=== PATIENT | female | born 1975 | race Caucasian/White ===

== ENCOUNTER 2018-11-15 11:16 | Observation (INO) ==
--- NOTE | 2018-11-15 11:35 | Emergency Department Note ---
Disposition Clinical Impression: Bilateral ureteral obstruction Disposition: Admitted As Inpatient Referrals: NONE,PCP [Primary Care Provider] - Forms: ED Satisfaction Letter, Work/School Release Time of Disposition: 13:25 Abdominal Pain HPI - General Chief Complaint: ED Abdominal Pain Stated Complaint: kidney stones Time Seen by Provider: 11/15/18 11:30 Source: patient Nursing Notes Reviewed: Yes Vital Signs Reviewed: Yes - History of Present Illness HPI Narrative: 43-year-old female presents emergency department with concern for left flank pain over the last 4 days. Patient states that on Monday, started having some left flank discomfort. Reports having history of ureteral stones with having have them removed in the past. Patient states that things have just not gotten any better and the pain may be getting a little bit worse. She endorses nausea, but no vomiting. She denies any fevers, chills. She denies any dysuria, urinary , urgency. She does state she has hematuria. Pain Scale: 7 - Related Data Home Medications Medication Instructions Recorded Confirmed LORazepam [Ativan] 1 mg PO BID PRN 11/15/18 11/15/18 Venlafaxine XR (24 HR) [Effexor XR] 75 mg PO BID 11/15/18 11/15/18 l-Norgest/E.estradiol-E.estrad 1 each PO [id number] 11/15/18 11/15/18 [Seasonique 0.15-0.03-0.01 Tab] Allergies Allergy/AdvReac Type Severity Reaction Status Date / Time No Known Allergies Allergy Verified 11/15/18 11:58 All systems ED: reviewed and negative except as stated. Review of Systems: As Per HPI Constitutional: Denies: fever Cardiovascular: Denies: chest pain Respiratory: Denies: cough, dyspnea Gastrointestinal: Reports: abdominal pain, nausea. Denies: vomiting Genitourinary: Reports: hematuria. Denies: urgency, dysuria, frequency Musculoskeletal: Reports: back pain Integumentary: Denies: rash Abdominal Pain PMH - Past Medical History Medical history: Reports: non-contributory, kidney stones Female Surgical History: Reports: appendectomy, , cholecystectomy, orthopedic, other Psychiatric history: Reports: no psych history - Social History Smoking status: Current every day smoker Alcohol use: Reports: none Drug use: Reports: none Physical Exam - General Limitations: no limitations General appearance: alert, in no apparent distress Course Vital Signs Temperature 98.0 F 11/15/18 11:24 Pulse Rate 97 11/15/18 11:24 Respiratory Rate 18 11/15/18 11:24 Blood Pressure 128/77 11/15/18 11:24 O2 Sat by Pulse Oximetry 98 11/15/18 11:24 Temperature 98.0 F 11/15/18 11:24 Pulse Rate 93 11/15/18 11:52 Respiratory Rate 18 11/15/18 11:24 Blood Pressure 93/62 11/15/18 11:52 O2 Sat by Pulse Oximetry 100 11/15/18 11:52 Oxygen Delivery Oxygen Delivery Room Air Abdominal Pain - MDM Narrative Medical decision making narrative: 43-year-old female presents emergency department with left flank pain. A CT scan abdomen and pelvis revealed bilateral obstructive stones with hydroureter. Patient also has an AKA I which is most likely secondary to the bilateral obstructive uropathy. Patient was given 2 L of fluids here. Urinalysis shows mild signs of infection with a leukocytosis. Have provided Rocephin to the patient as well. Patient had her pain well controlled here in the emergency department. Potassium is 3. Will not replenish as patient has an acute kidney injury. I spoke with urology who will plan for surgery later today. Patient understands this. Admitted to the hospitalists. Abdomen/Pelvis CT 11/15/18 11:41 IMPRESSION: 1. Mild to moderate left hydronephrosis and hydroureter secondary to a proximal left ureteral stone measuring up to 7 mm. 2. Mild right hydronephrosis secondary to a 4 mm stone just distal to the right ureteropelvic junction. 3. Multiple nonobstructing nephrolithiasis. 4. Status post cholecystectomy. Abnormal high density is seen in the surgical bed of unclear etiology. D/ / 11/15/2018 13:03:31 Leanne Hernandez MD / rock Interpreting Provider: Leanne Hernandez MD - Lab Data Result diagrams: 11/15/18 11:47 11/15/18 11:47 Lab Results 11/15/18 11/15/18 11/15/18 Range/Units 11:37 11:37 11:47 WBC 12.3 H (4.3-11.1) K/mcL RBC 4.00 (3.82-4.97) M/mcL Hgb 12.1 (11.5-15.4) g/dL Hct 37.5 (35.3-44.9) % MCV 93.8 (83.0-100.0) fL MCH 30.3 (28.0-33.3) pg MCHC 32.3 (31.6-35.5) g/dL RDW 13.4 (11.5-14.5) % Plt Count 282 (140-400) K/mcL MPV 9.7 (9.4-12.4) fL Immature Gran % 0.4 (0-4) % Seg Neutrophils % 79.5 % Lymphocytes % 14.1 % Monocytes % 3.7 % Eosinophils % 2.0 % Basophils % 0.3 % Neutrophils # 9.8 H (1.6-8.9) K/mcL Lymphocytes # 1.7 (0.6-4.6) K/mcL Monocytes # 0.5 (0.0-1.3) K/mcL Eosinophils # 0.2 (0.0-0.6) K/mcL Basophils # 0.0 (0.0-0.2) K/mcL Sodium (136-145) mEq/L Potassium (3.5-5.1) mEq/L Chloride (98-107) mEq/L Carbon Dioxide (23-29) mEq/L BUN (6-20) mg/dL Creatinine (0.60-1.20) mg/dL Est GFR ( Amer) (> 60) Est GFR (Non-Af Amer) (> 60) BUN/Creatinine Ratio (6-26) Glucose (70-105) mg/dL Calculated Osmolality (280-300) Calcium (8.6-10.3) mg/dL Total Bilirubin (0.3-1.0) mg/dL AST (13-39) Units/L ALT (7-52) Units/L Alkaline Phosphatase (34-104) Units/L Serum Total Protein (6.4-8.9) g/dL Albumin (3.5-5.7) g/dL Globulin (2.4-3.5) g/dL Albumin/Globulin Ratio (1.1-2.2) Lipase (11-82) Units/L Urine Color Yellow (Yellow) Urine Clarity Clear (Clear) Urine pH 6.5 (5.0-8.0) pH Units Ur Specific [place] 1.015 (1.010-1.025) Urine Protein 30 H (Neg-Trace) mg/dL Urine Glucose (UA) Normal (Normal) mg/dL Urine Ketones Negative (Negative) mg/dL Urine Blood Moderate H (Negative) Urine Nitrite Negative (Negative) Urine Bilirubin Negative (Negative) Urine Urobilinogen Normal (Normal) mg/dL Ur Leukocyte Esterase Trace H (Negative) Urine Microscopic RBC 15-30 H (0-3) per hpf Urine Microscopic WBC 5-15 H (0-3) per hpf Ur Squamous Epith Cells Many H (None-Few) per lpf Urine Bacteria None Seen (None-Few) per hpf Hyaline Casts None Seen (None-Few) per lpf Ur Culture Indicated? YES A (NO) Urine Test Negative (Negative) 11/15/18 Range/Units 11:47 WBC (4.3-11.1) K/mcL RBC (3.82-4.97) M/mcL Hgb (11.5-15.4) g/dL Hct (35.3-44.9) % MCV (83.0-100.0) fL MCH (28.0-33.3) pg MCHC (31.6-35.5) g/dL RDW (11.5-14.5) % Plt Count (140-400) K/mcL MPV (9.4-12.4) fL Immature Gran % (0-4) % Seg Neutrophils % % Lymphocytes % % Monocytes % % Eosinophils % % Basophils % % Neutrophils # (1.6-8.9) K/mcL Lymphocytes # (0.6-4.6) K/mcL Monocytes # (0.0-1.3) K/mcL Eosinophils # (0.0-0.6) K/mcL Basophils # (0.0-0.2) K/mcL Sodium 137 (136-145) mEq/L Potassium 3.0 L (3.5-5.1) mEq/L Chloride 103 (98-107) mEq/L Carbon Dioxide 26 (23-29) mEq/L BUN 18 (6-20) mg/dL Creatinine 2.10 H (0.60-1.20) mg/dL Est GFR ( Amer) 31 L (> 60) Est GFR (Non-Af Amer) 26 L (> 60) BUN/Creatinine Ratio 9 (6-26) Glucose 104 (70-105) mg/dL Calculated Osmolality 286 (280-300) Calcium 8.5 L (8.6-10.3) mg/dL Total Bilirubin 0.3 (0.3-1.0) mg/dL AST 15 (13-39) Units/L ALT 13 (7-52) Units/L Alkaline Phosphatase 76 (34-104) Units/L Serum Total Protein 6.4 (6.4-8.9) g/dL Albumin 3.4 L (3.5-5.7) g/dL Globulin 3.0 (2.4-3.5) g/dL Albumin/Globulin Ratio 1.1 (1.1-2.2) Lipase 77 (11-82) Units/L Urine Color (Yellow) Urine Clarity (Clear) Urine pH (5.0-8.0) pH Units Ur Specific [place] (1.010-1.025) Urine Protein (Neg-Trace) mg/dL Urine Glucose (UA) (Normal) mg/dL Urine Ketones (Negative) mg/dL Urine Blood (Negative) Urine Nitrite (Negative) Urine Bilirubin (Negative) Urine Urobilinogen (Normal) mg/dL Ur Leukocyte Esterase (Negative) Urine Microscopic RBC (0-3) per hpf Urine Microscopic WBC (0-3) per hpf Ur Squamous Epith Cells (None-Few) per lpf Urine Bacteria (None-Few) per hpf Hyaline Casts (None-Few) per lpf Ur Culture Indicated? (NO) Urine Test (Negative)
--- NOTE | 2018-11-15 11:36 | Emergency Department Note ---
Disposition Clinical Impression: Bilateral ureteral obstruction Disposition: Admitted As Inpatient Time of Disposition: 16:57 General Adult HPI - General Chief complaint: ED Abdominal Pain Stated complaint: kidney stones Time Seen by Provider: 11/15/18 11:30 Source: patient Limitations: no limitations - History of Present Illness Pain Scale: 7 - Related Data Home Medications Medication Instructions Recorded Confirmed LORazepam [Ativan] 1 mg PO BID PRN 11/15/18 11/15/18 Tamsulosin HCl [Flomax] 0.4 mg PO DAILY 11/15/18 11/15/18 Venlafaxine XR (24 HR) [Effexor XR] 75 mg PO BID 11/15/18 11/15/18 l-Norgest/E.estradiol-E.estrad 1 each PO DAILY 11/15/18 11/15/18 [Seasonique 0.15-0.03-0.01 Tab] Allergies Allergy/AdvReac Type Severity Reaction Status Date / Time No Known Allergies Allergy Verified 11/15/18 11:58 Past Medical History - Past Medical History Medical history: Reports: non-contributory, kidney stones Psychiatric history: Reports: no psych history - Social History Smoking Status: Current every day smoker Alcohol use: Reports: none Drug use: Reports: none Physical Exam - General Limitations: no limitations General appearance: alert, in no apparent distress Course Vital Signs Temperature 98.0 F 11/15/18 11:24 Pulse Rate 97 11/15/18 11:24 Respiratory Rate 18 11/15/18 11:24 Blood Pressure 128/77 11/15/18 11:24 O2 Sat by Pulse Oximetry 98 11/15/18 11:24 Temperature 98.0 F 11/15/18 11:24 Pulse Rate 78 11/15/18 13:25 Respiratory Rate 16 11/15/18 13:25 Blood Pressure 110/72 11/15/18 13:25 O2 Sat by Pulse Oximetry 96 11/15/18 13:25 Oxygen Delivery Oxygen Delivery Room Air Medical Decision Making - Lab Data Result diagrams: 11/15/18 11:47 11/15/18 11:47 Lab Results 11/15/18 11/15/18 11/15/18 Range/Units 11:37 11:37 11:47 WBC 12.3 H (4.3-11.1) K/mcL RBC 4.00 (3.82-4.97) M/mcL Hgb 12.1 (11.5-15.4) g/dL Hct 37.5 (35.3-44.9) % MCV 93.8 (83.0-100.0) fL MCH 30.3 (28.0-33.3) pg MCHC 32.3 (31.6-35.5) g/dL RDW 13.4 (11.5-14.5) % Plt Count 282 (140-400) K/mcL MPV 9.7 (9.4-12.4) fL Immature Gran % 0.4 (0-4) % Seg Neutrophils % 79.5 % Lymphocytes % 14.1 % Monocytes % 3.7 % Eosinophils % 2.0 % Basophils % 0.3 % Neutrophils # 9.8 H (1.6-8.9) K/mcL Lymphocytes # 1.7 (0.6-4.6) K/mcL Monocytes # 0.5 (0.0-1.3) K/mcL Eosinophils # 0.2 (0.0-0.6) K/mcL Basophils # 0.0 (0.0-0.2) K/mcL Sodium (136-145) mEq/L Potassium (3.5-5.1) mEq/L Chloride (98-107) mEq/L Carbon Dioxide (23-29) mEq/L BUN (6-20) mg/dL Creatinine (0.60-1.20) mg/dL Est GFR ( Amer) (> 60) Est GFR (Non-Af Amer) (> 60) BUN/Creatinine Ratio (6-26) Glucose (70-105) mg/dL Calculated Osmolality (280-300) Calcium (8.6-10.3) mg/dL Total Bilirubin (0.3-1.0) mg/dL AST (13-39) Units/L ALT (7-52) Units/L Alkaline Phosphatase (34-104) Units/L Serum Total Protein (6.4-8.9) g/dL Albumin (3.5-5.7) g/dL Globulin (2.4-3.5) g/dL Albumin/Globulin Ratio (1.1-2.2) Lipase (11-82) Units/L Urine Color Yellow (Yellow) Urine Clarity Clear (Clear) Urine pH 6.5 (5.0-8.0) pH Units Ur Specific [place] 1.015 (1.010-1.025) Urine Protein 30 H (Neg-Trace) mg/dL Urine Glucose (UA) Normal (Normal) mg/dL Urine Ketones Negative (Negative) mg/dL Urine Blood Moderate H (Negative) Urine Nitrite Negative (Negative) Urine Bilirubin Negative (Negative) Urine Urobilinogen Normal (Normal) mg/dL Ur Leukocyte Esterase Trace H (Negative) Urine Microscopic RBC 15-30 H (0-3) per hpf Urine Microscopic WBC 5-15 H (0-3) per hpf Ur Squamous Epith Cells Many H (None-Few) per lpf Urine Bacteria None Seen (None-Few) per hpf Hyaline Casts None Seen (None-Few) per lpf Ur Culture Indicated? YES A (NO) Urine Test Negative (Negative) 11/15/18 Range/Units 11:47 WBC (4.3-11.1) K/mcL RBC (3.82-4.97) M/mcL Hgb (11.5-15.4) g/dL Hct (35.3-44.9) % MCV (83.0-100.0) fL MCH (28.0-33.3) pg MCHC (31.6-35.5) g/dL RDW (11.5-14.5) % Plt Count (140-400) K/mcL MPV (9.4-12.4) fL Immature Gran % (0-4) % Seg Neutrophils % % Lymphocytes % % Monocytes % % Eosinophils % % Basophils % % Neutrophils # (1.6-8.9) K/mcL Lymphocytes # (0.6-4.6) K/mcL Monocytes # (0.0-1.3) K/mcL Eosinophils # (0.0-0.6) K/mcL Basophils # (0.0-0.2) K/mcL Sodium 137 (136-145) mEq/L Potassium 3.0 L (3.5-5.1) mEq/L Chloride 103 (98-107) mEq/L Carbon Dioxide 26 (23-29) mEq/L BUN 18 (6-20) mg/dL Creatinine 2.10 H (0.60-1.20) mg/dL Est GFR ( Amer) 31 L (> 60) Est GFR (Non-Af Amer) 26 L (> 60) BUN/Creatinine Ratio 9 (6-26) Glucose 104 (70-105) mg/dL Calculated Osmolality 286 (280-300) Calcium 8.5 L (8.6-10.3) mg/dL Total Bilirubin 0.3 (0.3-1.0) mg/dL AST 15 (13-39) Units/L ALT 13 (7-52) Units/L Alkaline Phosphatase 76 (34-104) Units/L Serum Total Protein 6.4 (6.4-8.9) g/dL Albumin 3.4 L (3.5-5.7) g/dL Globulin 3.0 (2.4-3.5) g/dL Albumin/Globulin Ratio 1.1 (1.1-2.2) Lipase 77 (11-82) Units/L Urine Color (Yellow) Urine Clarity (Clear) Urine pH (5.0-8.0) pH Units Ur Specific [place] (1.010-1.025) Urine Protein (Neg-Trace) mg/dL Urine Glucose (UA) (Normal) mg/dL Urine Ketones (Negative) mg/dL Urine Blood (Negative) Urine Nitrite (Negative) Urine Bilirubin (Negative) Urine Urobilinogen (Normal) mg/dL Ur Leukocyte Esterase (Negative) Urine Microscopic RBC (0-3) per hpf Urine Microscopic WBC (0-3) per hpf Ur Squamous Epith Cells (None-Few) per lpf Urine Bacteria (None-Few) per hpf Hyaline Casts (None-Few) per lpf Ur Culture Indicated? (NO) Urine Test (Negative) Attestation Statement - Attestation Attestation: I reviewed the residents documentation and agree with the residents assessment and plan of care. I have personally had face to face time with the patient. (Brief History, Brief Exam, and MDM) I personally supervised and was present for the ascencio/critical portions of the following procedures completed by the resident: (add procedures performed here). [id number] time provided Patient with renal colic. Recently seen at an outside facility for similar symptoms. We will attempt to obtain the transcribed report of her recent renal US. Patient appears in no acute distress on exam
[2018-11-15] MEDS ORDERED: 0.9 % Sodium Chloride 1,000 ML IVC ONE ×2 (11:41→12:28)
[2018-11-15] MEDS ORDERED: Ondansetron 4 MG/2 ML VIAL IVP ONE (11:41)
[2018-11-15 11:54] LABS: Bilirubin,Urine Negative (Negative); Blood,Urine Moderate (Negative); Clarity,Urine Clear (Clear); Color,Urine Yellow (Yellow); Glucose,Urine (UA) Normal (Normal); Ketones,Urine Negative (Negative); Leukocyte Esterase,Urine Trace (Negative); Nitrite,Urine Negative (Negative); PH,Urine 6.5 pH Units (5.0-8.0); Protein,Urine 30 mg/dL (Neg-Trace); Specific Gravity,Urine 1.015 (1.010-1.025); Urobilinogen,Urine Normal (Normal)
[2018-11-15] MEDS ORDERED: Morphine Sulfate 2 MG/ML SYRINGE IVP ONE (11:54)
[2018-11-15 11:56] LABS: Bacteria,Urine None Seen per hpf (None-Few); Hyaline Casts,Urine None Seen per lpf (None-Few); RBC,Urine 15-30 per hpf (0-3); Squamous Epithelial Cell,Urine Many per lpf (None-Few)
[2018-11-15 12:00] LABS: Basophils % 0.3 %; Eosinophils # 0.2 K/mcL (0.0-0.6); Hematocrit 37.5 % (35.3-44.9); Hemoglobin 12.1 g/dL (11.5-15.4); Immature Granulocytes % 0.4 % (0-4); Lymphocytes # 1.7 K/mcL (0.6-4.6); Lymphocytes % 14.1 %; Mean Corpuscular HGB Conc 32.3 g/dL (31.6-35.5); Mean Corpuscular Hemoglobin 30.3 pg (28.0-33.3); Mean Corpuscular Volume 93.8 fL (83.0-100.0); Mean Platelet Volume 9.7 fL (9.4-12.4); Monocytes # 0.5 K/mcL (0.0-1.3); Monocytes % 3.7 %; Neutrophils # 9.8 K/mcL (1.6-8.9); Platelet Count 282 K/mcL (140-400); Red Cell Distribution Width 13.4 % (11.5-14.5); Segmented Neutrophils % 79.5 %; White Blood Count 12.3 K/mcL (4.3-11.1)
[2018-11-15 12:20] LABS: Albumin 3.4 g/dL (3.5-5.7); Albumin/Globulin Ratio 1.1 (1.1-2.2); Bilirubin,Total 0.3 mg/dL (0.3-1.0); Calcium 8.5 mg/dL (8.6-10.3); Total Protein 6.4 g/dL (6.4-8.9)
[2018-11-15] MEDS ORDERED: cefTRIAXone 1,000 MG in Water for inj. (sterile) 10 ML IVP ONE (13:14)
[2018-11-15] MEDS ORDERED: Acetaminophen 325 MG TABLET PO PRN (13:40)
[2018-11-15] MEDS ORDERED: Naloxone 0.4 MG/ML INJ IVP PRN (13:40)
[2018-11-15] MEDS ORDERED: *HR* HYDROcodone/Acet 5/325 mg TABLET PO PRN (13:40)
[2018-11-15] MEDS ORDERED: Ondansetron 4 MG/2 ML VIAL IVP PRN (13:40)
[2018-11-15] MEDS ORDERED: *HR* FentaNYL (PF) 100 MCG/2 ML VIAL IVP PRN (13:42)
--- NOTE | 2018-11-15 14:18 | Urology - Consult Note ---
Date of Encounter: 11/15/18 Time of Encounter: 13:30 - Assessment and Plan (1) HENRRY (acute kidney injury) Current Visit: Yes Status: Acute Assessment and plan: Patient is a 43-year-old female who presents with acute kidney injury. Patient presents with bilateral obstructing ureteral stones. Vital signs are stable and afebrile. Renal function is compromised with a serum creatinine of 2.10 and GFR of 26. I do not have baseline renal function labs to compare. Patient has been consented for bilateral ureteroscopic stone extraction and bilateral stent placement. We will follow postoperative renal function labs. (2) Nephrolithiasis Current Visit: Yes Status: Acute Assessment and plan: Patient is a 43-year-old female who presents the history of nephrolithiasis. Patient has a long-standing history of nephrolithiasis and a significant family history of nephrolithiasis. Patient undergo bilateral ureteroscopy later today. (3) Bilateral ureteral calculi Current Visit: Yes Status: Acute Assessment and plan: Patient is a 43-year-old female who presents with bilateral obstructing renal calculi, hydronephrosis and nephrolithiasis. Vital signs are stable and afebrile. Urine has been sent for culture, and white blood cell count is mildly elevated at 12.3. Patient appears stable and comfortable. Reviewed CT findings. We discussed surgical risks and benefits, and patient and her family members verbalized understanding. Patient signed consent, and she is prepared undergo a bilateral ureteroscopic stone extraction with holmium laser lithotripsy, basket retrieval and bilateral ureteral stent placement later this evening with Dr. Dick. Patient will remain nothing by mouth. Urology CN:HPI Consult date: 11/15/18 Reason for consult Urology: Hydronephrosis (bilateral ureteral calculi) Requesting physician: Gene Johnson History of present illness: Patient is a 43-year-old female who presents with bilateral ureteral calculi, nephrolithiasis and bilateral hydronephrosis. Patient reports intermittent left flank pain over the last 2-3 weeks, but she reports the pain acutely worsened 4 days ago. Patient admits to nausea, left flank pain, and left upper abdominal pain. Patient denies any fever, chills, dysuria, gross hematuria, urgency, frequency or incontinence. Patient presented to the emergency department where she underwent a CT of the abdomen and pelvis revealing mild to moderate left hydronephrosis and hydroureter secondary to a proximal left ureteral stone, measuring up to 7 mm and mild right hydronephrosis secondary to a 4 mm stone just distal to the right UPJ. CT findings were also suggestive of bilateral, nonobstructive nephrolithiasis. Patient reports a long-standing history of nephrolithiasis, and she has previously undergone percutaneous nephrolithotomy, ureteroscopy and ESWL. Patient has a significant family history of renal stones through her brother and father. Past Med Surg Social Fam HX - Past Medical History Medical history: non-contributory, kidney stones Psychiatric history: no psych history - Past Surgical History Additional surgical history: Percutaneous nephrolithotomy, ureteroscopy, ESWL - Social History Smoking Status: Current every day smoker Alcohol use: none Drug use: none - Family History Father Brother Hx Family Genitourinary Disorders: Yes (Renal stones) Medications and Allergies LORazepam [Ativan] 1 mg PO BID PRN 11/15/18 [History] Tamsulosin HCl [Flomax] 0.4 mg PO DAILY 11/15/18 [History] Venlafaxine XR (24 HR) [Effexor XR] 75 mg PO BID 11/15/18 [History] l-Norgest/E.estradiol-E.estrad [Seasonique 0.15-0.03-0.01 Tab] 1 each PO [id number] 11/15/18 [History] Allergy/AdvReac Type Severity Reaction Status Date / Time No Known Allergies Allergy Verified 11/15/18 11:58 Review of Systems - Constitutional no chills, no fatigue, no fever(s) - EENT Nose, mouth and throat: no dizziness, no headache(s) - Cardiovascular no chest pain, no diaphoresis, no dyspnea - Respiratory no cough, no dyspnea - Gastrointestinal abdominal pain, nausea, no vomiting - Genitourinary Genitourinary: flank pain, no change in urinary stream, no difficulty voiding, no dysuria, no hematuria, no urinary frequency, no urinary hesitancy, no urinary incontinence, no urinary urgency - Musculoskeletal back pain, no muscle weakness - Integumentary no erythema, no rash - Neurological no confusion, no syncope - Psychiatric no anxiety, no confusion - Hematologic/Lymphatic no easy bleeding, no easy bruising - Allergic/Immunologic no throat swelling, no wheezing Exam Initial Vital Signs Temp Pulse Resp BP Pulse Ox 98.0 F 97 18 128/77 98 11/15/18 11:24 11/15/18 11:24 11/15/18 11:24 11/15/18 11:24 11/15/18 11:24 - General physical appearance Present: well developed, no distress, no pain - Eyes Present: PERRL, normal ocular movement - ENT Present: normal nares, no hearing loss, no congestion - Neck Present: no masses, trachea midline, no lymphadenopathy - Respiratory Present: normal respiratory effort - Cardiovascular Cardiovascular exam IM: RRR - Abdomen Abdomen: Present: soft, non tender. Absent: distended - Genitourinary Present: other (No CVAT) - Integumentary Present: no rash, no abnormal pigmentation - Neurologic Present: normal coordination - Musculoskeletal Present: other (Normal posture) Urology Results - Labs 11/15/18 11:47 11/15/18 11:47 Abnormal lab results WBC 12.3 K/mcL (4.3-11.1) H 11/15/18 11:47 Neutrophils # 9.8 K/mcL (1.6-8.9) H 11/15/18 11:47 Potassium 3.0 mEq/L (3.5-5.1) L 11/15/18 11:47 Creatinine 2.10 mg/dL (0.60-1.20) H 11/15/18 11:47 Est GFR ( Amer) 31 (> 60) L 11/15/18 11:47 Est GFR (Non-Af Amer) 26 (> 60) L 11/15/18 11:47 Calcium 8.5 mg/dL (8.6-10.3) L 11/15/18 11:47 Albumin 3.4 g/dL (3.5-5.7) L 11/15/18 11:47 Urine Protein 30 mg/dL (Neg-Trace) H 11/15/18 11:37 Urine Blood Moderate (Negative) H 11/15/18 11:37 Ur Leukocyte Esterase Trace (Negative) H 11/15/18 11:37 Urine Microscopic RBC 15-30 per hpf (0-3) H 11/15/18 11:37 Urine Microscopic WBC 5-15 per hpf (0-3) H 11/15/18 11:37 Ur Squamous Epith Cells Many per lpf (None-Few) H 11/15/18 11:37 Ur Culture Indicated? YES (NO) A 11/15/18 11:37 Diabetes panel 11/15/18 Range/Units 11:47 Sodium 137 (136-145) mEq/L Potassium 3.0 L (3.5-5.1) mEq/L Chloride 103 (98-107) mEq/L Carbon Dioxide 26 (23-29) mEq/L BUN 18 (6-20) mg/dL Creatinine 2.10 H (0.60-1.20) mg/dL Glucose 104 (70-105) mg/dL Calcium 8.5 L (8.6-10.3) mg/dL AST 15 (13-39) Units/L ALT 13 (7-52) Units/L Alkaline Phosphatase 76 (34-104) Units/L Albumin 3.4 L (3.5-5.7) g/dL Calcium panel 11/15/18 Range/Units 11:47 Calcium 8.5 L (8.6-10.3) mg/dL Albumin 3.4 L (3.5-5.7) g/dL Pituitary panel 11/15/18 Range/Units 11:47 Sodium 137 (136-145) mEq/L Potassium 3.0 L (3.5-5.1) mEq/L Chloride 103 (98-107) mEq/L Carbon Dioxide 26 (23-29) mEq/L BUN 18 (6-20) mg/dL Creatinine 2.10 H (0.60-1.20) mg/dL Glucose 104 (70-105) mg/dL Calcium 8.5 L (8.6-10.3) mg/dL Adrenal panel 11/15/18 Range/Units 11:47 Sodium 137 (136-145) mEq/L Potassium 3.0 L (3.5-5.1) mEq/L Chloride 103 (98-107) mEq/L Carbon Dioxide 26 (23-29) mEq/L BUN 18 (6-20) mg/dL Creatinine 2.10 H (0.60-1.20) mg/dL Glucose 104 (70-105) mg/dL Calcium 8.5 L (8.6-10.3) mg/dL Total Bilirubin 0.3 (0.3-1.0) mg/dL AST 15 (13-39) Units/L ALT 13 (7-52) Units/L Alkaline Phosphatase 76 (34-104) Units/L Albumin 3.4 L (3.5-5.7) g/dL All other labs normal. - Imaging CT scan - abdomen: report reviewed, image reviewed CT scan - pelvis: report reviewed, image reviewed Consult Discharge Plan - Plan Referrals: NONE,PCP [Primary Care Provider] -
[2018-11-15] MEDS ORDERED: *HR* LORazepam 1 MG TABLET PO PRN (14:33)
--- NOTE | 2018-11-15 14:42 | Internal Med History&Physical ---
Date of Encounter: 11/15/18 Time of Encounter: 13:45 Internal Medicine - H&P: HPI Chief complaint: Left flank pain Admitted From: Emergency Dept Plans for Post Hospital Care: Home History of present illness: Ms. Lovett is a 43 year old female with known past medical history of recurrent b/l Calcium Oxalate renal calculi and anxiety pt presented to ER with 2 weeks h/o b/l flank, intermittent back pain, associated with some nausea. Since last 3-4 days her Left flank pain seems to be worsening and pt was concerned for o bstructive renal calculi. In the ER her CT of A/P showed mild to moderate left hydronephrosis and hydroureter secondary to a proximal left ureteral stone, measuring up to 7 mm and mild right hydronephrosis secondary to a 4 mm stone just distal to the right UPJ. Also have multiple b/l non-obstructive nephrolithiasis. Her Cr @ 2.1 and UA also abnormal. pt stated her pain is better now with pain medication Past Med Surg Social Fam HX - Past Medical History Medical history: non-contributory, kidney stones Psychiatric history: no psych history - Past Surgical History Additional surgical history: Percutaneous nephrolithotomy, ureteroscopy, ESWL - Social History Smoking Status: Current every day smoker Alcohol use: none Drug use: none - Family History Father Brother Hx Family Genitourinary Disorders: Yes (Renal stones) Father Hx Family Genitourinary Disorders: Yes (Renal calculi) Internal Medicine - H&P: Meds LORazepam [Ativan] 1 mg PO BID PRN 11/15/18 [History] Tamsulosin HCl [Flomax] 0.4 mg PO DAILY 11/15/18 [History] Venlafaxine XR (24 HR) [Effexor XR] 75 mg PO BID 11/15/18 [History] l-Norgest/E.estradiol-E.estrad [Seasonique 0.15-0.03-0.01 Tab] 1 each PO DAILY 11/15/18 [History] Allergy/AdvReac Type Severity Reaction Status Date / Time No Known Allergies Allergy Verified 11/15/18 11:58 All Systems PM: A 10-system review of systems was performed and is negative for pertinent findings except as documented above in the HPI. Review of systems: All the systems are reviewed everything is benign except the systems and symptoms I mentioned in the history of present illness - Constitutional Vitals: Temp Pulse Resp BP Pulse Ox 98.0 F 78 16 110/72 96 11/15/18 11:24 11/15/18 13:25 11/15/18 13:25 11/15/18 13:25 11/15/18 13:25 General appearance: Present: cooperative, A&O X 3, no acute distress, answers questions appropriately Exam: a - Head Head exam: Present: atraumatic, normal inspection - Neck Neck exam general surgery: Present: supple - Respiratory Respiratory exam: Present: decreased breath sounds. Absent: rales, respiratory distress, rhonchi, wheezes - Cardiovascular Cardiovascular exam: Present: RRR, +S1, +S2. Absent: tachycardia - GI/Abdominal GI/Abdominal exam: Present: normal bowel sounds, soft. Absent: distended, guarding, rebound, rigid, tenderness - Extremities Exam Extremities exam: Absent: calf tenderness, pedal edema, tenderness - Back Exam Back exam: Present: CVA tenderness (L) (mild tenderness). Absent: CVA tenderness (R) - Neurological Exam Neurological exam: Present: alert, oriented X3 - Psychiatric Psychiatric exam: Present: normal affect, normal mood - Skin Skin exam: Absent: rash Internal Med - H&P Results - Labs CBC & Chem 7: 11/15/18 11:47 11/15/18 11:47 Labs: Short CBC 11/15/18 Range/Units 11:47 WBC 12.3 H (4.3-11.1) K/mcL Hgb 12.1 (11.5-15.4) g/dL Hct 37.5 (35.3-44.9) % Plt Count 282 (140-400) K/mcL Neutrophils # 9.8 H (1.6-8.9) K/mcL BMP 11/15/18 11:47 Sodium 137 Potassium 3.0 L Chloride 103 Carbon Dioxide 26 BUN 18 Creatinine 2.10 H Glucose 104 Calcium 8.5 L Liver Function 11/15/18 Range/Units 11:47 Total Bilirubin 0.3 (0.3-1.0) mg/dL AST 15 (13-39) Units/L ALT 13 (7-52) Units/L Alkaline Phosphatase 76 (34-104) Units/L Albumin 3.4 L (3.5-5.7) g/dL Urine 07/18/19 Range/Units 11:37 Urine Color Yellow (Yellow) Urine Clarity Clear (Clear) Urine pH 6.5 (5.0-8.0) pH Units Ur Specific Gay 1.015 (1.010-1.025) Urine Protein 30 H (Neg-Trace) mg/dL Urine Glucose (UA) Normal (Normal) mg/dL - Impressions ITS Impressions Abdomen/Pelvis CT 11/15/18 11:41 IMPRESSION: 1. Mild to moderate left hydronephrosis and hydroureter secondary to a proximal left ureteral stone measuring up to 7 mm. 2. Mild right hydronephrosis secondary to a 4 mm stone just distal to the right ureteropelvic junction. 3. Multiple nonobstructing nephrolithiasis. 4. Status post cholecystectomy. Abnormal high density is seen in the surgical bed of unclear etiology. D/ / 11/15/2018 13:03:31 Leanne Hernandez MD / rock Interpreting Provider: Leanne Hernandez MD - Assessment and Plan (1) Bilateral ureteral calculi Current Visit: Yes Status: Acute Assessment and plan: place the pt into med surg for observation Obstructive Proximal Left ureter calculi 7 mm size and 4 mm size Rt ureter calculi Scheduled for cystoscope with stent placement as well as stone extraction later today cont NPO for now Appreciate Urology recommendation cont symptomatic and supportive care on Percocet and Fentanyl PRN on empirical abx IV Rocephin (2) Bilateral ureteral obstruction Current Visit: Yes Status: Acute Assessment and plan: as above (3) UTI (urinary tract infection) Current Visit: Yes Status: Acute Assessment and plan: UA is concerning for UTI Started on empirical abx IV Rocephin will f/u on Urine cx Qualifiers: Urinary tract infection type: site unspecified Hematuria presence: without hematuria Qualified Code(s): N39.0 - Urinary tract infection, site not specified (4) HENRRY (acute kidney injury) Current Visit: Yes Status: Acute Assessment and plan: Due to obstructive uropathy Urology on board possible cystoscopy with stent placement later today cont IV hydration cont flomax (5) Anxiety Current Visit: Yes Status: Chronic Assessment and plan: cont home meds (6) Tobacco dependence Current Visit: Yes Status: Acute Assessment and plan: Counseled to quit smoking placed on nicotine patch (7) Nephrolithiasis Current Visit: Yes Status: Acute - Time Spent With Patient Total time spent is greater than 50% in coordination of care (as documented) at patient's floor/unit and/or counseling patient:
[2018-11-15] MEDS: 0.9 % Sodium Chloride 1,000 ML IVC SCH (16:12)
[2018-11-15] MEDS ORDERED: Venlafaxine XR (24 HR) 75 MG CAP.ER.24H PO SCH (21:00)
--- NOTE | 2018-11-15 22:12 | Anesthesia Evaluation PreOp ---
Date of Encounter: 11/15/18 Time of Encounter: 22:20 - Past History Planned Operation: Bilateral Ureteral Stone Extraction Laser Litho Cardiac History: Denies any Significant Hx Pulmonary History: Smoker TILE MECHANIC History: Denies Any Significant HX Other Medical History: Denies Any Significant HX Anesthesia History: No Prior Anesthetic Complications : No Test: Negative Alcohol Use: none Drug use: none Medications and Allergies LORazepam [Ativan] 1 mg PO BID PRN 11/15/18 [History] Tamsulosin HCl [Flomax] 0.4 mg PO DAILY 11/15/18 [History] Venlafaxine XR (24 HR) [Effexor XR] 75 mg PO BID 11/15/18 [History] l-Norgest/E.estradiol-E.estrad [Seasonique 0.15-0.03-0.01 Tab] 1 each PO DAILY 11/15/18 [History] Allergy/AdvReac Type Severity Reaction Status Date / Time No Known Allergies Allergy Verified 11/15/18 11:58 - Meds/Allergy Pre-op Review Medications Reviewed: Yes Allergies Reviewed: Yes Beta Blockers on Current Med List: No Anesthesia Results - Labs 11/15/18 11:47 11/15/18 11:47 Laboratory Tests 11/15/18 11/15/18 11/15/18 11:37 11:47 11:47 Hgb 12.1 Hct 37.5 Plt Count 282 Sodium 137 Potassium 3.0 L BUN 18 Creatinine 2.10 H Urine Test Negative Anesthesia Exam Vital Signs/O2 Sat/Glucose, Most Current Temp Pulse Resp BP Pulse Ox 11/15/18 18:40 98.6 F 79 16 98/65 94 Height: 5'6 Weight: 196 lbs NPO (# of Hours): MN Pain Scale: 0 - HEENT Pupil (Motor): Pupils equal, EOMI Mallampati: II Teeth: Normal Oral Opening: Greater than 3 - TILE MECHANIC LOC: Oriented TILE MECHANIC Motor: Normal RUE, Normal LUE, Normal RLE, Normal LLE, Normal Face TILE MECHANIC Sensory: Normal: RUE, LUE, RLE, LLE, Face - Cardiac Rhythm: Regular Murmur: None JVD: No Carotid Bruit: No - Pulmonary Breath Sounds: bilateral Clear Respiratory Effort: Symmetrical Anesthesia Assess/Plan ASA Score: 2 Level of consciousness: Cooperative, Oriented Anesthetic Plan: General Autologous Blood: No Monitoring Plan: Standard Monitors Recovery Plan: PACU (Discussed GA, agrees to proceed)
[2018-11-15] MEDS ORDERED: Acetaminophen IV 1,000 MG/100 ML INFUS..BTL IVPB ONE (22:14)
[2018-11-15] MEDS ORDERED: Famotidine 20 MG/2 ML VIAL IVP ONE (22:14)
[2018-11-15] MEDS ORDERED: Albuterol 2.5 MG/3 ML NEBULIZER IH ONE (22:14)
[2018-11-15] MEDS ORDERED: Famotidine 20 MG/2 ML VIAL ONE (22:29)
[2018-11-15] MEDS ORDERED: Lidocaine -MPF 2% 2 ML VIAL ONE (23:10)
[2018-11-15] MEDS ORDERED: Dexamethasone 4 MG/ML VIAL ONE (23:10)
[2018-11-15] MEDS ORDERED: *HR* FentaNYL (PF) 100 MCG/2 ML VIAL ONE ×2 (23:10→23:50)
[2018-11-15] MEDS ORDERED: *HR* Propofol 200 MG/20 ML VIAL IVP ONE (23:10)
[2018-11-15] MEDS ORDERED: *HR* Succinylcholine 200 MG/10 ML VIAL IVP ONE (23:10)
[2018-11-15] MEDS ORDERED: Ondansetron 4 MG/2 ML VIAL ONE (23:10)
[2018-11-15] MEDS ORDERED: Lidocaine -MPF 4% 5 ML AMPUL ONE (23:13)
--- NOTE | 2018-11-15 23:36 | Operative Note ---
Date of procedure: 11/15/18 Pre-op diagnosis: Bilateral ureteral stones Post-op diagnosis: same Procedure: Bilateral ureteroscopy, laser lithotripsy, basket stone extraction, and stent placement Implants: Bilateral 4.8-Palestinian by 24 cm double-J stents Complications: None Anesthesia: GETA Surgeon: Sukhjinder Dick Was there an chemistry research assistant present: No Estimated blood loss (cc): 1 Specimen: ureteral stones Condition: stable Disposition: PACU Procedure in Detail: Indications: Slime is a 43-year-old female who has a history of nephrolithiasis. A CT scan showed bilateral proximal ureteral stones. She elected to undergo a bilateral ureteroscopy, laser lithotripsy, and stent placement. She was aware of the risks of the procedure including but not limited to bleeding, infection, injury to other structures, need for further procedures, stent irritation, need for nephrostomy tube, need for open repair, risks otherwise unforeseen, and the risk of anesthesia. She is willing to proceed. Procedure in Detail: After informed consent was obtained the patient was brought back to the operating room and placed in supine position. A time out was performed. General anesthesia was administered and an LMA was placed. She was then placed in the lithotomy position. She was prepped and draped in the usual sterile fashion. Cystoscopy was performed. The anterior urethra was normal. There was no evidence of bladder tumors. The ureteral orifices were in the normal orthotopic position. There was no duplication of the ureteral orifices. The zip wire was placed in the right ureteral orifice. The wire was then brought up into the kidney under fluoroscopic guidance. I then passed the 8/10 Palestinian ureteral dilator. Semirigid ureteroscope was then advanced up the right ureter. The stone had already migrated into the kidney. The scope was removed. The sensor wire was then placed up the left ureteral orifice. I then passed the 8/10 Palestinian ureteral dilator. Semirigid ureteroscope was then advanced up the left ureter. A stone was seen in the proximal ureter. This was fragmented using the 200 micron laser fiber. The stone fragments were basket extracted. A 4.8-Palestinian by 26 cm double-J stent was placed. A second wire was placed up the right ureteral orifice. The 11/13-Palestinian ureteral access sheath was then placed. The flexible ureteroscope was advanced in the kidney. A stone was seen in the upper pole calyx. This was fragmented using the 200 micron laser fiber. The stone fragments were basket extracted. There were some small stone fragments noted in the lower pole calyx, but these were all about 1 mm in size. She previously had a shockwave lithotripsy and these were likely old stone fragments. Once the stone extraction was complete, the ureteroscope was removed. The pullout ureteroscopy showed no evidence of ureteral injury. A 4.8-Palestinian by 24 cm double-J stent was then placed. A good curl seen in the kidney and the bladder. The dangle string was removed. The bladder was drained. The patient was then awakened from general anesthesia and brought to recovery room in good condition. All sponge, needle, and instrument counts were correct.
[2018-11-15] MEDS ORDERED: Isovue-300 50 ML VIAL ONE (23:45)
[2018-11-16] MEDS ORDERED: *HR* Promethazine 25 MG/ML VIAL IVP PRN (00:58)
[2018-11-16] MEDS ORDERED: Ondansetron 4 MG/2 ML VIAL IVP ONE (00:58)
--- NOTE | 2018-11-16 00:58 | Anesthesia Evaluation Post Op ---
Date of Encounter: 11/16/18 Time of Encounter: 01:10 - Vital Signs Vital Signs: Vital Signs/O2 Sat/Glucose, Most Current Temp Pulse Resp BP Pulse Ox 11/16/18 00:49 98.7 F 93 16 102/64 94 11/15/18 22:31 98.9 F 85 16 118/75 100 - Lungs Lungs: Clear Ascult./Percussion - Airway Airway: Non-obstructed - Cardiovascular Regular Rate - Mental Status Mental Status: Alert & Oriented, Answers Appropriately - Pain Pain Scale: 0 - Nausea Vomiting Nausea Vomiting: Not Present - Hydration Hydration: Ice chips - Discharge PostOp Status: Transfer Patient to floor
[2018-11-16] MEDS: 0.9 % Sodium Chloride 1,000 ML IVC SCH (04:15)
[2018-11-16 06:18] LABS: Hematocrit 36.9 % (35.3-44.9); Hemoglobin 11.6 g/dL (11.5-15.4); Mean Corpuscular HGB Conc 31.4 g/dL (31.6-35.5); Mean Corpuscular Hemoglobin 30.4 pg (28.0-33.3); Mean Corpuscular Volume 96.9 fL (83.0-100.0); Platelet Count 253 K/mcL (140-400); Red Blood Count 3.81 M/mcL (3.82-4.97); Red Cell Distribution Width 13.8 % (11.5-14.5); White Blood Count 10.4 K/mcL (4.3-11.1)
[2018-11-16 06:35] LABS: Calcium 7.7 mg/dL (8.6-10.3); Potassium 3.9 mEq/L (3.5-5.1)
[2018-11-16] MEDS ORDERED: Acetaminophen 325 MG TABLET PO PRN (06:38)
[2018-11-16] MEDS ORDERED: *HR* HYDROcodone/Acet 5/325 mg TABLET PO PRN (06:38)
[2018-11-16] MEDS ORDERED: *HR* LORazepam 1 MG TABLET PO PRN (06:38)
[2018-11-16] MEDS ORDERED: *HR* FentaNYL (PF) 100 MCG/2 ML VIAL IVP PRN (06:38)
[2018-11-16] MEDS ORDERED: Naloxone 0.4 MG/ML INJ IVP PRN (06:38)
[2018-11-16] MEDS ORDERED: Ondansetron 4 MG/2 ML VIAL IVP PRN (06:38)
--- NOTE | 2018-11-16 08:07 | Urology Progress Note ---
Date of Encounter: 11/16/18 Time of Encounter: 08:05 - Assessment and Plan (1) HENRRY (acute kidney injury) Current Visit: Yes Status: Acute (2) Nephrolithiasis Current Visit: Yes Status: Acute (3) Bilateral ureteral calculi Current Visit: Yes Status: Acute Assessment and plan: Patient is a 43-year-old female who presents one day status post bilateral ureteroscopy, laser lithotripsy, basket stone extraction, and stent placement. Vital signs are stable and afebrile. Renal function is slightly improved. Patient verbalizes desire for discharge. We discussed postoperative expectations with indwelling ureteral stents. Patient is aware she will require an appointment within 1 week for a cystoscopy and bilateral stent removal. Progress Note Subjective: no new complaints, feels better Narrative: POD #1. Patient seen and examined sitting upright in bed in no apparent distress. Patient is tolerating normal diet without nausea or vomiting. Patient reports she is voiding well without difficulty. Patient denies any fever, chills, flank pain. Objective Initial Vital Signs Temp Pulse Resp BP Pulse Ox 98.0 F 97 18 128/77 98 11/15/18 11:24 11/15/18 11:24 11/15/18 11:24 11/15/18 11:24 11/15/18 11:24 - General physical appearance Present: well developed, no distress, no pain - Respiratory Present: normal expansion, normal respiratory effort - Abdomen Present: soft, non tender. Absent: distended - Genitourinary Present: other (No CVAT) - Integumentary Present: no rash, no abnormal pigmentation - Musculoskeletal Present: normal posture - Psychiatric Present: oriented to time, oriented to person, oriented to place, speech is normal, memory intact - Labs 11/16/18 05:34 11/16/18 05:34 Diabetes panel 11/15/18 11/16/18 Range/Units 11:47 05:34 Sodium 137 147 H D (136-145) mEq/L Potassium 3.0 L 3.9 D (3.5-5.1) mEq/L Chloride 103 111 H (98-107) mEq/L Carbon Dioxide 26 21 L (23-29) mEq/L BUN 18 16 (6-20) mg/dL Creatinine 2.10 H 2.01 H (0.60-1.20) mg/dL Glucose 104 105 (70-105) mg/dL Calcium 8.5 L 7.7 L (8.6-10.3) mg/dL AST 15 (13-39) Units/L ALT 13 (7-52) Units/L Alkaline Phosphatase 76 (34-104) Units/L Albumin 3.4 L (3.5-5.7) g/dL Calcium panel 11/15/18 11/16/18 Range/Units 11:47 05:34 Calcium 8.5 L 7.7 L (8.6-10.3) mg/dL Albumin 3.4 L (3.5-5.7) g/dL Pituitary panel 11/15/18 11/16/18 Range/Units 11:47 05:34 Sodium 137 147 H D (136-145) mEq/L Potassium 3.0 L 3.9 D (3.5-5.1) mEq/L Chloride 103 111 H (98-107) mEq/L Carbon Dioxide 26 21 L (23-29) mEq/L BUN 18 16 (6-20) mg/dL Creatinine 2.10 H 2.01 H (0.60-1.20) mg/dL Glucose 104 105 (70-105) mg/dL Calcium 8.5 L 7.7 L (8.6-10.3) mg/dL Adrenal panel 11/15/18 11/16/18 Range/Units 11:47 05:34 Sodium 137 147 H D (136-145) mEq/L Potassium 3.0 L 3.9 D (3.5-5.1) mEq/L Chloride 103 111 H (98-107) mEq/L Carbon Dioxide 26 21 L (23-29) mEq/L BUN 18 16 (6-20) mg/dL Creatinine 2.10 H 2.01 H (0.60-1.20) mg/dL Glucose 104 105 (70-105) mg/dL Calcium 8.5 L 7.7 L (8.6-10.3) mg/dL Total Bilirubin 0.3 (0.3-1.0) mg/dL AST 15 (13-39) Units/L ALT 13 (7-52) Units/L Alkaline Phosphatase 76 (34-104) Units/L Albumin 3.4 L (3.5-5.7) g/dL Consult Discharge Plan - Plan Referrals: NONE,PCP [Primary Care Provider] -
[2018-11-16] MEDS ORDERED: cefTRIAXone 1,000 MG in Water for inj. (sterile) 10 ML IVP SCH ×2 (09:00)
[2018-11-16] MEDS ORDERED: Venlafaxine XR (24 HR) 75 MG CAP.ER.24H PO SCH (09:00)
[2018-11-16 11:14] VITALS: BP 110/72
[2018-11-16 13:05] LABS: Calcium 7.7 mg/dL (8.6-10.3); Potassium 3.7 mEq/L (3.5-5.1)
--- NOTE | 2018-11-16 13:14 | Discharge Summary ---
- NOTES TO OUTPATIENT PROVIDER Notes to Outpatient Provider: f/u with PCP in one week. f/u with Urologist as scheduled. Please go for blood work BMP in 3 days and f/u with PCP for test results. Orders not resulted at time of discharge: Pending orders 11/15/18 11:37 Culture,Urine [RM] Stat 11/16/18 00:39 Surgical Pathology [PTH] Routine Date of Encounter: 11/16/18 Time of Encounter: 13:12 - Discharge Diagnosis (1) Bilateral ureteral calculi Priority: Primary Status: Acute (2) Bilateral ureteral obstruction Priority: Primary Status: Acute (3) UTI (urinary tract infection) Priority: Primary Status: Acute Qualifiers: Urinary tract infection type: site unspecified Hematuria presence: without hematuria Qualified Code(s): N39.0 - Urinary tract infection, site not specified (4) HENRRY (acute kidney injury) Priority: Primary Status: Acute (5) Anxiety Priority: Secondary Status: Chronic (6) Tobacco dependence Priority: Secondary Status: Acute (7) Nephrolithiasis Priority: Secondary Status: Acute Hospital course: Ms. Lovett is a 43 year old female with known past medical history of recurrent b/l Calcium Oxalate renal calculi and anxiety pt presented to ER with 2 weeks h/o b/l flank, intermittent back pain, associated with some nausea. Since last 3-4 days her Left flank pain seems to be worsening and pt was concerned for obstructive renal calculi. In the ER her CT of A/P showed mild to moderate left hydronephrosis and hydroureter secondary to a proximal left ureteral stone, measuring up to 7 mm and mild right hydronephrosis secondary to a 4 mm stone just distal to the right UPJ. Also have multiple b/l non-obstructive nephrol ithiasis. Her Cr @ 2.1 and UA also abnormal. She was admitted in the hospital and started her on IV hydration and empirical antibiotic IV Rocephin. Patient was evaluated by urologist who did bilateral ureteroscopy, laser lithotripsy, basket stone extraction, and stent placement. With IV hydration her creatinine slowly improving. Her urine culture did not grow any bacteria yet. Patient wanted to go home today, so will send her home in a stable condition today with oral antibiotic Keflex and also recommended to have follow-up BMP done in 3 days. - Time Spent with Patient Total time spent providing and/or coordinating discharge services: - Discharge Medications Prescriptions: New Cephalexin [Keflex] 500 mg PO TID #15 capsule Continued LORazepam [Ativan] 1 mg PO BID PRN PRN Reason: Anxiety l-Norgest/E.estradiol-E.estrad [Seasonique 0.15-0.03-0.01 Tab] 1 each PO DAILY Venlafaxine XR (24 HR) [Effexor XR] 75 mg PO BID Tamsulosin HCl [Flomax] 0.4 mg PO DAILY Home Medications: LORazepam [Ativan] 1 mg PO BID PRN 11/15/18 [History] Tamsulosin HCl [Flomax] 0.4 mg PO DAILY 11/15/18 [History] Venlafaxine XR (24 HR) [Effexor XR] 75 mg PO BID 11/15/18 [History] l-Norgest/E.estradiol-E.estrad [Seasonique 0.15-0.03-0.01 Tab] 1 each PO DAILY 11/15/18 [History] Cephalexin [Keflex] 500 mg PO TID #15 capsule 11/16/18 [Rx] Allergies/Adverse Reactions: Allergy/AdvReac Type Severity Reaction Status Date / Time No Known Allergies Allergy Verified 11/15/18 11:58 Date of admission: 11/15/18 13:42 Primary care physician: PCP NONE Consults: 11/15/18 13:03 Consult to Urology [CONS] Stat Consulting Provider: Urology Roseann Reason for Consult: bilateral obstructing uropathy Time Notified: 13:03 Call Completed: Yes - Constitutional Vitals: Temp Pulse Resp BP Pulse Ox 98.6 F 87 16 110/72 95 11/16/18 11:12 11/16/18 11:12 11/16/18 11:12 11/16/18 11:12 11/16/18 11:12 General appearance: Present: cooperative, A&O X 3, no acute distress, answers questions appropriately Exam: Gen: Alert, awake, Oriented to time,place and person Chest: Diminished breath sounds B/L, No wheezing, No crackles, No rales Heart: S1S2+ RRR No murmurs Abd: Soft, NT, BS +, No organomegaly Ext: No edema, pulses are palpable, No calf tenderness Neuro : No acute focal neuro deficits noticed Skin: No rash. - Patient Status Disposition: Home, Self-Care Condition: Good Overall status at discharge: patient is back to baseline - Discharge Instructions Instructions: Kidney Stones (DC), Ureteral Stent Placement (DC) Follow Up With: Sukhjinder Dick MD [Partnered Physician] - (Appointment has been requested. Office will call with date and time of appointment. ) NONE,PCP [Primary Care Provider] - - Diet and Activity Activity: increase activity as tolerated Diet: low salt diet
[2018-11-21 09:25] LABS: Calculi Mass 87 mg
== END 2018-11-16 14:40 | disposition home or self-care (01) ==
LOC: EMEROOARM 11:16 → 3BNU 11:16 → SUATTDRO 13:42 → 3BNU 14:09
PROVIDERS: ADMIT Student in an Organized Health Care Education/Training Program; ATTEND Family Medicine